=== PATIENT | female | born 1995 | race Caucasian/White ===

== ENCOUNTER 2021-07-02 12:51 | Emergency (ER) | payer OTHER ==
[~2021-07-02] VITALS: Ht 172.7 cm; Wt 101.2 kg
[2021-07-02 12:52] VITALS: BP 145/89
[2021-07-02] MEDS ORDERED: IBUP-1022 PO (13:03)
[2021-07-02] MEDS ORDERED: guaiFENesin DM LIQ 10ML UD PO ONE (21:55)
[2021-07-02] MEDS ORDERED: ONDANSETRON 4MG/2ML VIAL IV ONE (21:55)
[2021-07-02] MEDS ORDERED: NS 1,000 ML IV ONE (21:55)
[2021-07-02] MEDS ORDERED: ZOFR4TAB16 PO (22:54)
[2021-07-02] MEDS ORDERED: ROBI1LIQ9 PO (23:04)
== END 2021-07-02 23:30 | disposition home or self-care (01) ==
LOC: M ED 12:51
DX: R05.9 Cough, unspecified (principal); R11.2 Nausea with vomiting, unspecified; U07.1 COVID-19
CPT/HCPCS: 96361; 96374; 99283; J2405